=== PATIENT | male | born 1935 | race Caucasian/White ===

== ENCOUNTER 2021-05-09 14:36 | Emergency (ER) | payer MEDICARE, SELFPAY ==
[2021-05-09] VITALS (7 sets, daily range): BP systolic 135–169; BP diastolic 92–126; PULSE 65–79; RESP 15–33; TEMP 35.7–37; O2SAT 100; BMI 19.5
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
[2021-05-09 15:24] LABS: Absolute Lymphocyte Count 2.45 X10^3/uL (0.83-4.51); Absolute Neutrophil Count 5.8 X10^3/uL (2.0-7.7); Basophil# 0.06 X10^3/uL; Basophil% 0.7 % (0-1); Eosinophil# 0.13 X10^3/uL; Eosinophils% 1.4 % (0-5); Hematocrit 49.7 % (40-54); Hemoglobin 16.7 g/dL (13.0-16.5); Lymphocyte # 2.45 X10^3/ul (0.83-4.51); Lymphocyte % 26.8 % (19-41); Mean Corp Hgb Conc 33.6 g/dL (32-36); Mean Corpuscular Hgb 30.4 pg (27.0-32.0); Mean Corpuscular Volume 90.4 fL (80-94); Mean Platelet Vol. 11.6 fl (6.2-12.0); Monocyte# 0.72 X10^3/uL; Monocyte% 7.9 % (0-10); NRBC Flagged by Analyzer 0 % (0-5); Neutrophil # 5.76 X10^3/uL (2.7-7.7); Neutrophil % 62.9 % (47-70); Platelet Count 188 K/mm3 (150-450); RBC Distribution Width SD 49.6 fl (35.1-43.9); White Blood Count 9.2 K/mm3 (4.4-11.0)
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
[2021-05-09 15:37] LABS: Anion Gap 7 (5-15); BUN 36 mg/dL (7-18); BUN/Creat Ratio 26.7 RATIO (10-20); Calcium,Total 9.9 mg/dL (8.5-10.1); Chloride 104 mmol/L (98-107); Creatinine, Serum 1.35 mg/dL (0.70-1.30); EST Glomerular Filtration Rate 54 mL/min (>60); Est Glom Filt Rate - Afr Amer 65 mL/min (>60); Estimated Creatinine Clearance 36.36 ml/min; Glucose 148 mg/dL (74-106); Potassium 4.3 mmol/L (3.5-5.1); Sodium Level 140 mmol/L (136-145)
--- NOTE | 2021-05-09 16:24 | ED.RN ---
WALKED PT 200 FT, PT HAS AN UNSTEADY GAIT BUT TOLERATED WELL. DENIES USE OF ASSISTIVE DEVICES AT HOME ,
--- NOTE | 2021-05-09 16:30 | CM.ED ---
SW Note Referral Source: chemical analyst Reason: Discharge planning SW met with patient and his daughter, Nandini. Nandini said that she has to work and wanted to work bit and [employer]ank department supervisor taking care of patient but he has too many assets. Nandini said that she spoke to [facility] and she met with their client relations representative and had the POA and Living Will completed at the [facility]. Nandini said that patient will have an assessment with [facility] in June. Nandini indicated she was comfortable taking patient home. Patient said that he wanted to go home. SW asked daughter, Nandini, if she was going home with patient and Nandini said if you want me to and SW advised that we do want him to be with someone for his safety. SW provided resources on [employer] and [employer]. Nandini voiced no concerns with taking patient home and voiced that she was planning to take patient home, to his house. SW discussed that Home Health Care is limited as they come into the home a couple of days a week for limited time. Nandini tawanda that patint gets around good and does not need home health PT/OT. SW explained that resources for home help are private pay. Nandini said well, at least he doesn't have his car anymore. YASEMIN updated MD [place] Plan: Resource Provided including [employer] and [employer] Bernarda Verduzco
[2021-05-09 17:46] LABS: Bedside Glucose 96 mg/dL (74-106)
== END 2021-05-09 16:38 | disposition home or self-care (01) ==
PROVIDERS: Emergency Provider Emergency Medicine; PCP Internal Medicine; Visit Provider Emergency Medicine
DX: T68.XXXA Hypothermia, initial encounter (principal); V89.2XXA Person injured in unspecified motor-vehicle accident, traffic, initial encounter; Y93.9 Activity, unspecified; Y92.9 Unspecified place or not applicable
CPT/HCPCS: 71045; 80048; 82962; 85025; 93005; 99285; A4216

== ENCOUNTER 2021-08-10 12:44 | Observation (INO) | payer MEDICARE, SELFPAY ==
[2021-08-10 12:45] VITALS: BP 161/99; PULSE 78; RESP 16; TEMP 36.3; O2SAT 100; BMI 22.2
--- NOTE | 2021-08-10 13:09 | EKG12_ITS ---
Test Reason : Blood Pressure : / mmHG Vent. Rate : 075 BPM Atrial Rate : 075 BPM P-R Int : 196 ms QRS Dur : 136 ms QT Int : 414 ms P-R-T Axes : 032 007 152 degrees QTc Int : 462 ms Normal sinus rhythm Left bundle branch block Abnormal ECG Confirmed by DAIN NELSON, DEVAUGHN ([id number]), non linear editor NURIS CRENSHAW ([id number]) on 08/12/2021 8:22:18 AM Referred By: RADHA Confirmed By:DEVAUGHN GAUTAM MD
--- NOTE | 2021-08-10 13:09 | CT_ITS ---
STUDY: CT BRAIN WITHOUT CONTRAST REASON FOR EXAM: Male, 85 years old. ataxia, left side paresthesia RADIATION DOSAGE (If Supplied By Facility): CTDIvol = ( 44.99 ) mGy, DLP = ( 796.11 ) mGycm TECHNIQUE: Transaxial CT imaging of the brain was performed without administration of intravenous contrast material. Individualized dose optimization techniques were used for this CT. COMPARISON: No relevant priors. FINDINGS: Normal soft tissue structures. Normal calvarium. There is moderate cerebral atrophy with widening of the extra-axial spaces and ventricular dilatation. There are areas of decreased attenuation within the white matter tracts of the supratentorial brain, consistent with microvascular disease changes. 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 Normal brainstem. Normal cerebellum. There is no intracranial hemorrhage. There are no findings of an acute ischemic infarction. Normal visualized paranasal sinuses. CT/Brain/Head without Contrast IMPRESSION: Chronic involutional changes of the brain. Electronically Signed: Berhane Hamilton MD at 14:21 EDT ,
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
--- NOTE | 2021-08-10 13:28 | ED.RN ---
NIHSS CANCELED PER ED .
[2021-08-10 13:31] LABS: Bacteria 0 SEEN /hpf (None Seen); Mucous, Urine 0 SEEN /hpf (<or=2+); Red Blood Cells-Urine 0 SEEN /hpf (0-5); Squamous Epithelial Cells - UA 0 SEEN /hpf (0-5)
[2021-08-10 13:32] LABS: Absolute Lymphocyte Count 1.48 X10^3/uL (0.83-4.51); Basophil# 0.05 X10^3/uL; Basophil% 0.6 % (0-1); Eosinophil# 0.04 X10^3/uL; Eosinophils% 0.5 % (0-5); Hematocrit 43.1 % (40-54); Hemoglobin 14.9 g/dL (13.0-16.5); Lymphocyte # 1.48 X10^3/ul (0.83-4.51); Lymphocyte % 18.3 % (19-41); Mean Corp Hgb Conc 34.6 g/dL (32-36); Mean Corpuscular Hgb 29.8 pg (27.0-32.0); Mean Corpuscular Volume 86.2 fL (80-94); Mean Platelet Vol. 10.2 fl (6.2-12.0); Monocyte# 0.51 X10^3/uL; Monocyte% 6.3 % (0-10); NRBC Flagged by Analyzer 0 % (0-5); Neutrophil # 5.97 X10^3/uL (2.7-7.7); Neutrophil % 74.1 % (47-70); Platelet Count 253 K/mm3 (150-450); RBC Distribution Width CV 15.3 % (11.6-14.6); White Blood Count 8.1 K/mm3 (4.4-11.0)
[2021-08-10 13:33] LABS: Color, Urine Yellow (Yellow); Glucose, Dipstick Normal (Normal); Ketone-Dipstick Negative (Negative); Leukocyte Esterase-Dipstick Negative /ul (Negative); Nitrite-Dipstick Negative (Negative); Occult Blood-Urine Negative /ul (Negative); Protein-Dipstick 15 mg/dl (Negative); Urine Bilirubin Dipstick Negative (Negative); Urine Clarity Clear (Clear); Urine Urobilinogen Normal (Normal)
[2021-08-10 13:39] LABS: Hyaline Cast 0-5 SEEN /lpf (0-5); White Blood Cells 0-5 SEEN /hpf (0-5)
--- NOTE | 2021-08-10 13:40 | RAD_ITS ---
STUDY: X-RAY CHEST REASON FOR EXAM: Male, 85 years old. Neuro deficit, acute, stroke suspected TECHNIQUE: Single AP portable view of the chest. COMPARISON: 05/09/2021 FINDINGS: The lungs are clear and expanded. There is no demonstrated pleural abnormality. Normal size heart. Normal mediastinum and josue. Normal visualized pulmonary arteries. Normal visualized aortic arch and descending thoracic aorta. Normal visualized thoracic spine. Normal visualized ribs, clavicles, and shoulders. There is no demonstrated abnormality of the visualized soft tissue structures of the upper abdomen. RAD/Chest 1 View IMPRESSION: Normal x-ray examination of the chest. Electronically Signed: Berhane Hamilton MD at 14:18 EDT ,
[2021-08-10 13:52] LABS: Anion Gap 10 (5-15); BUN 65 mg/dL (7-18); BUN/Creat Ratio 24.2 RATIO (10-20); Calcium,Total 9.3 mg/dL (8.5-10.1); Chloride 118 mmol/L (98-107); Creatinine, Serum 2.69 mg/dL (0.70-1.30); EST Glomerular Filtration Rate 24 mL/min (>60); Est Glom Filt Rate - Afr Amer 29 mL/min (>60); Estimated Creatinine Clearance 20.69 ml/min; Glucose 166 mg/dL (74-106); Potassium 3.8 mmol/L (3.5-5.1); Sodium Level 143 mmol/L (136-145); Troponin-I HS 21 pg/mL (3.0-78.0)
[2021-08-10 13:58] LABS: International Normalized Ratio 1.1; Prothrombin Time (Protime)PT. 14.1 SECONDS (11.7-14.9)
[2021-08-10 13:59] LABS: Partial Thromboplast Time 27.8 Seconds (24.1-36.2)
[2021-08-10] MEDS: 0.9% Normal Saline 1,000 ML 150 ML IV (15:11)
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
[2021-08-10 16:13] VITALS: BP 130/78; PULSE 72; RESP 16; TEMP 36.6
[2021-08-10 16:29] VITALS: BMI 17.9
[2021-08-10 16:35] VITALS: BP 123/68; PULSE 70; RESP 18; TEMP 36.4; O2SAT 98
[2021-08-10 16:47] VITALS: BMI 17.9
[2021-08-10] MEDS: 0.9% Normal Saline 1,000 ML 100 ML IV ×2 (17:24→23:20)
[2021-08-10 18:38] VITALS: PULSE 86
[2021-08-10 19:03] VITALS: PULSE 80
[2021-08-10 20:23] VITALS: BP 151/84; PULSE 76; RESP 16; TEMP 36.5; O2SAT 99
[2021-08-10] MEDS: Pravastatin 20 MG Tablet 10 MG PO (22:29)
[2021-08-10] MEDS: Acetaminophen 325 MG Tablet 650 MG PO (23:18)
[2021-08-11] VITALS (7 sets, daily range): BP systolic 149–177; BP diastolic 82–95; PULSE 67–80; RESP 16–20; TEMP 36.1–36.8; O2SAT 97–100; BMI 17.9
[2021-08-11 05:31] LABS: Absolute Lymphocyte Count 2.25 X10^3/uL (0.83-4.51); Absolute Neutrophil Count 5.8 X10^3/uL (2.0-7.7); Basophil# 0.05 X10^3/uL; Basophil% 0.6 % (0-1); Eosinophils% 1.1 % (0-5); Hematocrit 37.1 % (40-54); Hemoglobin 13.2 g/dL (13.0-16.5); Lymphocyte # 2.25 X10^3/ul (0.83-4.51); Lymphocyte % 25.4 % (19-41); Mean Corp Hgb Conc 35.6 g/dL (32-36); Mean Corpuscular Hgb 30.3 pg (27.0-32.0); Mean Corpuscular Volume 85.3 fL (80-94); Mean Platelet Vol. 10.1 fl (6.2-12.0); Monocyte% 6.8 % (0-10); NRBC Flagged by Analyzer 0 % (0-5); Neutrophil # 5.82 X10^3/uL (2.7-7.7); Neutrophil % 65.8 % (47-70); Platelet Count 228 K/mm3 (150-450); RBC Distribution Width CV 15.3 % (11.6-14.6); RBC Distribution Width SD 47.2 fl (35.1-43.9); Red Blood Count 4.35 M/mm3 (4.6-6.2); White Blood Count 8.9 K/mm3 (4.4-11.0)
[2021-08-11 05:45] LABS: Anion Gap 8 (5-15); BUN 55 mg/dL (7-18); BUN/Creat Ratio 26.7 RATIO (10-20); Chloride 122 mmol/L (98-107); Creatinine, Serum 2.06 mg/dL (0.70-1.30); EST Glomerular Filtration Rate 33 mL/min (>60); Est Glom Filt Rate - Afr Amer 40 mL/min (>60); Estimated Creatinine Clearance 22.44 ml/min; Glucose 99 mg/dL (74-106); Potassium 3.5 mmol/L (3.5-5.1); Sodium Level 145 mmol/L (136-145)
[2021-08-11] MEDS: 0.9% Normal Saline 1,000 ML 100 ML IV (08:21)
[2021-08-11] MEDS: Aspirin 81 MG TAB.CHEW PO (09:35)
[2021-08-11] MEDS: Fluticasone 0.05% 1 SPRAY NASAL.SRY 2 SPRAY NASAL (09:35)
--- NOTE | 2021-08-11 12:04 | PN.HOSP_ITS ---
Subjective Subjective Much more alert today, he is oriented however he still shows signs of dementia Objective Data Objective Data Vital Signs: Vital Signs Temp Pulse Resp BP Pulse Ox 97.3 F L 77 18 150/84 H 97 08/11/21 08:15 08/11/21 10:52 08/11/21 08:15 08/11/21 08:15 08/11/21 08:15 Oxygen Delivery Method Room Air Weight: 130 lb 15.273 oz Body Mass Index (BMI) 17.9 Intake & Output: Intake and Output for Last 24 Hours 08/10/21 08/11/21 08/12/21 03:59 03:59 03:59 Intake Total 1673.33 / 1673.33 1141.67 / 1141.67 Output Total 50 / 50 Balance 1623.33 / 1623.33 1141.67 / 1141.67 Lab / Micro Data Result Diagrams: 08/11/21 05:04 08/11/21 05:04 Labs: Laboratory Results - last 24 hr 08/10/21 13:15: Urine Color Yellow, Urine Clarity Clear, Urine pH 5.0, Ur Specific [place] 1.020, Urine Protein 15 H, Urine Glucose (UA) Normal, Urine Ketones Negative, Urine Occult Blood Negative, Urine Nitrite Negative, Urine Bilirubin Negative, Urine Urobilinogen Normal, Ur Leukocyte Esterase Negative, Urine RBC 0 SEEN, Urine WBC 0-5 SEEN, Ur Squamous Epith Cells 0 SEEN, Urine Bacteria 0 SEEN, Hyaline Casts 0-5 SEEN, Urine Mucus 0 SEEN 08/10/21 13:21: WBC 8.1, RBC 5.00, Hgb 14.9, Hct 43.1, MCV 86.2, MCH 29.8, MCHC 34.6, RDW Std Deviation 48.0 H, RDW Coeff of Bj 15.3 H, Plt Count 253, MPV 10.2, Immature Gran % (Auto) 0.200, Neut % (Auto) 74.1 H, Lymph % (Auto) 18.3 L, [place] % (Auto) 6.3, Eos % (Auto) 0.5, Baso % (Auto) 0.6, Absolute Neuts (auto) 6.0, Absolute Lymphs (auto) 1.48, Nucleated RBC % 0 08/10/21 13:21: PT 14.1, INR 1.1, APTT 27.8 08/10/21 13:21: Sodium 143, Potassium 3.8, Chloride 118 H, Carbon Dioxide 15.0 L , Anion Gap 10, BUN 65 H, Creatinine 2.69 H, Estim Creat Clear Calc 20.69, Est GFR (MDRD) Af Amer 29 L, Est GFR (MDRD) Non-Af 24 L, BUN/Creatinine Ratio 24.2 H , Glucose 166 H, Calcium 9.3, Troponin I High Sens 21 08/11/21 05:04: WBC 8.9, RBC 4.35 L, Hgb 13.2, Hct 37.1 L, MCV 85.3, MCH 30.3, MCHC 35.6, RDW Std Deviation 47.2 H, RDW Coeff of Bj 15.3 H, Plt Count 228, MPV 10.1, Immature Gran % (Auto) 0.300, Neut % (Auto) 65.8, Lymph % (Auto) 25.4, [place] % (Auto) 6.8, Eos % (Auto) 1.1, Baso % (Auto) 0.6, Absolute Neuts (auto) 5.8, Absolute Lymphs (auto) 2.25, Nucleated RBC % 0 08/11/21 05:04: Sodium 145, Potassium 3.5, Chloride 122 H, Carbon Dioxide 15.0 L , Anion Gap 8, BUN 55 H, Creatinine 2.06 H, Estim Creat Clear Calc 22.44, Est GFR (MDRD) Af Amer 40 L, Est GFR (MDRD) Non-Af 33 L, BUN/Creatinine Ratio 26.7 H , Glucose 99, Calcium 9.0 Radiography Diagnostic Testing: Radiology Impression Brain CT 08/10/21 13:09 IMPRESSION: Chronic involutional changes of the brain. Electronically Signed: Berhane Hamilton MD at 14:21 EDT , Chest X-Ray 08/10/21 13:40 IMPRESSION: Normal x-ray examination of the chest. Electronically Signed: Berhane Hamilton MD at 14:18 EDT , Physical Exam Const alert, oriented x3 and no apparent distress General Appearance: cooperative HEENT normocephalic and moist oral mucous membranes Eyes PERRL, EOMs intact bilaterally and conjunctivae normal Neck supple and no JVD Resp normal respiratory effort, no retractions, no use of accessory muscles and clear to auscultation bilaterally Auscultation: Negative for crackles, rales, rhonchi or wheezes Cardio regular rate, regular rhythm, S1 normal heart sound, S2 normal heart sound and no murmurs GI soft to palpation, non-tender and non-distended; Negative for hepatosplenomegaly Extremity no clubbing, cyanosis or edema Skin no rashes or lesions noted Neuro no focal motor deficits and no sensory deficits noted Psych affect normal Appearance: appropriate Assessment & Plan Assessment/Plan (1) Acute renal failure: PLAN: Plan 1. Confusion possibly due to acute renal failure versus CVA ? Creatinine today is 2.06 and in April of this year was 1.35, with his improvement in renal function it does verify his acute renal failure diagnosis ? Continue with gentle IV fluid hydration ? Chest x-ray and UA were unremarkable for infection ? Brain CT was also unremarkable though there were signs of chronic ischemic changes as well signs of a previous stroke ? Continue with his statin and will add aspirin given his history of previous strokes, family does not want to pursue MRI or CTAs of the head and neck ? PT/OT evaluations for possible placement 2. HTN ? Blood pressures currently are stable ? However per report he does not take his blood pressure medications consistently ? We will hold his lisinopril secondary to his acute renal failure ? Despite the left bundle branch block on EKG read by the ED physician, family would not like to pursue any type of cardiac work-up at this time DVT: SCDs Charges/Coding Visit Charges Inpatient E&M: 44013 Subs Hosp L2
--- NOTE | 2021-08-11 12:10 | CASEMGMT ---
Addendum entered by Caro Garay 08/11/21 15:09: Call back from Sara at [facility] and she states they can accept pt with SOC 08/12/21. Sara aware to call daughter, Nandini, to set up SOC, voices understanding. Jose FERGUSON CM Original Note: MARTY MARTINEZ assessment: Face to Face with patient for initial transition planning/care coordination assessment. MARTY MARTINEZ introduced self and role at [facility], pt voices understanding and consents to assessment. Pt is sitting up in chair in no distress on room air. Pt is A/Ox4 and answers all questions appropriately.? Pt's daughter, Nandini, is at bedside during assessment. Care providers, pharmacy,?and demographics verified/updated. ? Presentation: worsening confusion over last few days, weakness Admitting dx: Confusion, KELLY PCP: Jerri Specialists: None Preferred Pharmacy: [facility] Insurance: [facility] Prescription Benefit:?[facility] Living Will/HPOA: Per daughter, pt has LW/HPOA and is aware they are not on file at [facility]. Pt's daughter, Nandini, is HPOA. LNOK: Nandini/Brandan [place], daughter/son-in-law Living Arrangements: Pt's daughter states that she and her are moving into pt's home, which is a 3 story home and pt states no concerns at home. Pt is independent with ADL's. Transportation: Pt's family drives and states no transportation concerns. DME/HHC: Pt has grab bars in shower and states no further DME. Pt/daughter decline need for any further DME. Pt/daughter are interested in HHC at discharge and list of HHC providers including quality and resource use data and consistent with the pt's preferred geographic region, medical needs, and insurance network. Daughter states she would like [facility] for PT/OT and referral to Eleni at [facility]. Pt/daughter states no concerns with going home at time of discharge. Pt is retired. Pt does not smoke cigarettes or drink ETOH. Pt/daughter voice no further concerns/needs. CM to follow for any further discharge planning/needs. Advised pt to ask for CM if any further questions/concerns/needs arise, voices understanding. Pt Goal: Home Plan: Home w/ HHC and family support Jose FERGUSON CM
--- NOTE | 2021-08-11 12:28 | DCINST_ITS ---
Discharge Instructions Diet Discharge Diet: Low fat / Low cholesterol Activity Discharge Activity: Return to Normal Activity and May Not Drive Dressing / Incision Call your doctor if you observe: Fever of 101 or Higher, Shortness of breath, Dizziness, Fainting spells, Swelling in the ankles, Chest pain and Increased palpitations (irregular heartbeat) Follow Up Care Test Results: Test results from this visit will be discussed in further detail at your follow- up appointment, if applicable. Discharge Plan Admission Admit Date/Time: 08/10/21 15:54 Attending Provider: Chema Glass Primary Care Provider: Bárbara Guthrie Discharge Orders/Prescriptions Prescriptions: New aspirin 81 mg Tablet,Chewable 81 mg PO BREAKFAST 30 Days Qty: 30 0RF Continued pravastatin 10 mg tablet 10 tab PO DAILY Label Comments: TAKE 1 TABLET BY MOUTH DAILY AT BEDTIME triamcinolone acetonide 55 mcg aerosol,spray 2 spray INTRANASAL DAILY Label Comments: USE 2 SPRAYS IN THE NOSE ONCE DAILY Held lisinopril 10 mg tablet 1 tab PO DAILY Hold Instructions: Resume on 08/13/21. Label Comments: TAKE 1 TABLET BY MOUTH DAILY Referrals / Follow Up: Bárbara Guthrie MD [Primary Care Provider] - Within 1 Week Disposition Disposition (needs filled in before D/C Order can be placed): Home Health Service
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
--- NOTE | 2021-08-11 13:48 | PHA.DC.MR ---
Pharmacy Service has performed discharge medication reconciliation for this patient. Home Medications lisinopril 10 mg tablet 1 tab PO DAILY blood pressure 08/10/21 pravastatin 10 mg tablet 10 tab PO DAILY cholesterol 08/10/21 triamcinolone acetonide 55 mcg nasal spray aerosol 2 spray intranasal DAILY breathing 08/10/21 aspirin 81 mg chewable tablet 81 mg PO BREAKFAST 30 days #30 tabs 08/11/21 The patient's discharge medication list was reviewed for discrepancies and discrepancies were resolved.
[2021-08-11] MEDS: Acetaminophen 325 MG Tablet 650 MG PO (14:35)
== END 2021-08-11 12:30 | disposition home health service (06) ==
LOC: ED 13:34 → PCU 19:08
PROVIDERS: Admitting Provider Family Medicine; Emergency Provider Emergency Medicine; PCP Internal Medicine; Visit Provider Family Medicine
DX: N17.9 Acute kidney failure, unspecified (principal); F03.90 Unspecified dementia, unspecified severity, without behavioral disturbance, psychotic disturbance, mood disturbance, and anxiety; E78.5 Hyperlipidemia, unspecified; I10 Essential (primary) hypertension; I44.7 Left bundle-branch block, unspecified; Z86.73 Personal history of transient ischemic attack (TIA), and cerebral infarction without residual deficits; R27.0 Ataxia, unspecified; R29.702 NIHSS score 2; Z79.899 Other long term (current) drug therapy
CPT/HCPCS: 36415; 70450; 71045; 80048; 81001; 84484; 85025; 85610; 85730; 92526; 93005; 96360; 96361; 97162; 97166; 97802; 99218; 99285; J7030; A4216; G0378

== ENCOUNTER 2021-08-23 07:26 | Emergency (ER) | payer MEDICARE, SELFPAY ==
[2021-08-23 07:27] VITALS: BP 183/88; PULSE 46; RESP 18; TEMP 36.4; O2SAT 100; BMI 20.1
--- NOTE | 2021-08-23 07:55 | EDS_ITS ---
HPI History of Present Illness Chief Complaint: Dental Informant: patient Narrative Narrative: Patient states tooth and right lower jaw has been bothering him off and on for a while. He evidently talked to a dentist sounds like sometime this past week and they stated he could drop him to be seen on Wednesday. But this morning he woke up and the tooth is just bothering him more. He has no neck pain. He does not feel ill. He has no chest pain trouble breathing. He isolates the pain directly to tooth #27. Nothing makes it better or worse but nothing is really been tried. [facility] Medical History Complete left bundle branch block HTN (hypertension) Hyperlipidemia Home Medications lisinopril 10 mg tablet 1 tab PO DAILY blood pressure 08/10/21 [History Last Taken Unknown] pravastatin 10 mg tablet 10 tab PO DAILY cholesterol 08/10/21 [History Last Taken Unknown] triamcinolone acetonide 55 mcg nasal spray aerosol 2 spray intranasal DAILY breathing 08/10/21 [History Last Taken Unknown] aspirin 81 mg chewable tablet 81 mg PO BREAKFAST 30 days #30 tabs 08/11/21 [Rx Last Taken Unknown] penicillin V potassium 250 mg tablet 500 mg PO 4X/DAY #40 tabs 08/23/21 [Rx Last Taken Unknown] tramadol 50 mg tablet 50 mg PO Q8H PRN pain #9 tabs 08/23/21 [Rx Last Taken Unknown] Allergy/AdvReac Type Severity Reaction Status Date / Time No Known Allergies Allergy Verified 08/23/21 07:32 Social History Smoking Status: Never smoker ROS ROS ED Constitutional Constitutional ED: Denies chills or fever(s) Eyes Eyes: Denies blurry vision ENT ENT ED: Reports other Details: Tooth pain but no trouble swallowing ; Denies sore throat Cardiovascular Cardiovascular: Denies chest pain, palpitations or racing heartbeat Respiratory/Chest Respiratory/Chest: Denies cough, dyspnea or dyspnea on exertion Gastrointestinal Gastrointestinal: Denies nausea or vomiting Musculoskeletal Musculoskeletal: Denies back pain or neck pain Integumentary Denies rash Neurologic Neurologic: Denies headache(s) Hematologic/Lymphatic Hematologic/Lymphatic: Denies lymphadenopathy Allergic/Immunologic Allergic/Immunologic ED: Denies urticaria EXAM Physical Exam Const Vital Signs: 08/23/21 07:27 Temperature 97.6 F L Temperature Source Temporal Pulse Rate 46 L Respiratory Rate 18 Blood Pressure 183/88 H Blood Pressure Mean 119 Pulse Ox 100 Oxygen Delivery Method Room Air Positive well nourished and well developed General Appearance ED: well developed and NAD HEENT HEENT Narrative: No external rash or swelling. No sinus tenderness. No nasal drainage. Voice is normal. Handle secretions normally. Tooth #27 is eroded down into the gums. The gum is somewhat erythematous. But there is no drainable abscess. Floor the mouth is soft. Tongue is nontender. No sign of Delroy's angina. Negative for trauma Eyes EOMs intact bilaterally Neck no lymphadenopathy, supple and no JVD General: Negative for anterior neck swelling Lymph Lymphatic: no lymphadenopathy noted Chest Wall inspection of chest normal Resp normal respiratory effort GI normal to inspection, nondistended, normoactive bowel sounds and non-tender Skin no rashes or lesions noted MDM MDM MDM Narrative Medical decision making narrative: Patient has isolated dental pain. I do not think this is a masquerade of heart disease. He will be treated with meds for pain and antibiotics. He states he can get into a dentist on Wednesday. We discussed reasons to return. Discharge Plan Triage Chief Complaint: Dental ED Provider: Jose Campos Dx/Rx/DC Orders Clinical Impression: Pain, dental Instructions: ED Dental Pain Prescriptions: New penicillin V potassium 250 mg tablet 500 mg PO 4X/DAY Qty: 40 0RF tramadol 50 mg tablet 50 mg PO Q8H PRN (Reason: pain) Qty: 9 0RF No Action pravastatin 10 mg tablet 10 tab PO DAILY Label Comments: TAKE 1 TABLET BY MOUTH DAILY AT BEDTIME lisinopril 10 mg tablet 1 tab PO DAILY Hold Instructions: Resume on 08/13/21. Label Comments: TAKE 1 TABLET BY MOUTH DAILY triamcinolone acetonide 55 mcg aerosol,spray 2 spray INTRANASAL DAILY Label Comments: USE 2 SPRAYS IN THE NOSE ONCE DAILY aspirin 81 mg Tablet,Chewable 81 mg PO BREAKFAST 30 Days Qty: 30 0RF Primary Care Provider: Bárbara Guthrie Referrals: Bárbara Guthrie MD [Primary Care Provider] - As soon as possible Activity Restrictions/Additional Instructions: See your dentist as soon as possible for recheck. Disposition Disposition: Home, Self Care
[2021-08-23] MEDS: Acetaminophen 325 MG Tablet 650 MG PO (08:12)
[2021-08-23] MEDS: Penicillin Vk 250 MG Tablet 500 MG PO (08:13)
== END 2021-08-23 08:24 | disposition home or self-care (01) ==
PROVIDERS: Emergency Provider Emergency Medicine; PCP Internal Medicine; Visit Provider Emergency Medicine
DX: K08.89 Other specified disorders of teeth and supporting structures (principal); I10 Essential (primary) hypertension; E78.5 Hyperlipidemia, unspecified; Z79.899 Other long term (current) drug therapy; Z79.82 Long term (current) use of aspirin
CPT/HCPCS: 99285

== ENCOUNTER 2022-07-05 11:18 | Emergency (ER) | payer MEDICARE, SELFPAY ==
[2022-07-05 11:19] VITALS: BP 155/87; PULSE 67; RESP 18; TEMP 36.2; O2SAT 100; BMI 21.2
--- NOTE | 2022-07-05 11:44 | RAD_ITS ---
INDICATION: cough EXAMINATION/TECHNIQUE: X-RAY - XR Chest 1 View COMPARISON: May 09 and August 10, 2021 FINDINGS: LINES/DEVICES: None. LUNGS: No new consolidation, edema or effusion. No pneumothorax. MEDIASTINUM AND CARDIOVASCULAR STRUCTURES: Cardiac silhouette not enlarged. Central airways and mediastinal contour are unremarkable. BONES AND SOFT TISSUES: Unremarkable. RAD/Chest 1 View (Portable) IMPRESSION: No radiographic evidence of acute cardiopulmonary disease. Electronically Signed: Elida Gonzalez MD at 13:06 EDT ,
--- NOTE | 2022-07-05 11:45 | EDS_ITS ---
HPI History of Present Illness Chief Complaint: Weakness Narrative Narrative: 86-year-old male presenting with his family because they are concerned of his weakness. He also states he has a heavy cough. When I asked the patient he states he feels good. He does not have any complaints. He does have any pain anywhere. He is not short of breath. Family states that last 2 days has been sleeping a little bit more and usually walks around the block in the morning but did not do that the last 2 days. PFSH PFS Medical History Complete left bundle branch block HTN (hypertension) Hyperlipidemia Home Medications lisinopril 10 mg tablet 1 tab PO DAILY blood pressure 08/10/21 [History Last Taken Unknown] pravastatin 10 mg tablet 10 tab PO DAILY cholesterol 08/10/21 [History Last Taken Unknown] aspirin 81 mg chewable tablet 81 mg PO BREAKFAST 30 days #30 tabs 08/11/21 [Rx Last Taken Unknown] Allergy/AdvReac Type Severity Reaction Status Date / Time No Known Allergies Allergy Verified 07/05/22 11:19 Social History Smoking Status: Never smoker ROS ROS ED Constitutional Constitutional ED: Denies chills, fever(s) or sweats Eyes Eyes: Denies blurry vision or change in vision ENT ENT ED: Denies ear pain or sore throat Cardiovascular Cardiovascular: Denies chest pain, palpitations or racing heartbeat Respiratory/Chest Respiratory/Chest: Denies cough, dyspnea or sputum Gastrointestinal Gastrointestinal: Denies abdominal pain, constipation, diarrhea, nausea or vomiting Genitourinary Genitourinary ED: Denies dysuria, hematuria or urinary frequency Musculoskeletal Musculoskeletal: Denies arthralgias, myalgias or neck pain Integumentary Denies abscess, Abrasions or rash Neurologic Neurologic: Denies headache(s), paresthesias or weakness Psychiatric Psychiatric: Denies anxiety, depression, suicidal ideation or suicidal thoughts Endocrine Endocrinology: Denies polydipsia or polyuria EXAM Physical Exam Const Vital Signs: 07/05/22 11:19 07/05/22 11:44 Temperature 97.1 F L Temperature Source Temporal Pulse Rate 67 Respiratory Rate 18 Respiratory Effort Normal Non-Labored Respiratory Pattern Normal Blood Pressure 155/87 H Blood Pressure Mean 109 Pulse Ox 100 Oxygen Delivery Method Room Air Positive well nourished General Appearance ED: NAD; Negative for pallor HEENT Reports moist mucous membranes Eyes PERRL and EOMs intact bilaterally General Eye ED: Negative for pale conjunctiva or scleral icterus Cardio regular rate and regular rhythm GI normal to inspection, nondistended, normoactive bowel sounds Neuro oriented x3 and CN's II-XII intact bilaterally Sensorium / Orientation: alert Psych mental status grossly normal Skin no rashes or lesions noted General Skin Exam: Negative for jaundice or pallor MDM MDM MDM Narrative Medical decision making narrative: Patient presenting with perceived generalized weakness by his family but states he feels great. He does not have any complaints but the family states he has had a cough. Patient's physical exam is normal. His vital signs are stable and he is afebrile. Differential at this point includes pneumonia, viral syndrome, dehydration. CBC to assess white blood cell count, hemoglobin, platelets, differential. Chest x-ray will be obtained to rule out pneumonia. COVID and influenza will be collected. CMP to assess liver function, renal function, electrolytes, glucose. Urinalysis was performed to rule out UTI given his perceived weakness. CBC shows no leukocytosis. Hemoglobin hematocrit are stable. Platelets are normal. Creatinine is up today to 2.59. Previously 2.06 however this was a year ago. Patient was given a liter of IV fluids. Urinalysis negative for infection. Chest x-ray on my interpretation shows no acute cardiopulmonary process. The radiologist interprets and agrees. COVID and influenza are negative discussed with on-call provider for Dr. Guthrie. Follow-up next week for repeat labs. Impression: 1. Dehydration 2. Weakness Lab Data Attestation: I reviewed the patient's lab results. Labs: Laboratory Results - last 24 hr 07/05/22 07/05/22 07/05/22 12:00 12:00 12:41 WBC 6.9 RBC 4.33 L Hgb 12.9 L Hct 41.3 MCV 95.4 H MCH 29.8 MCHC 31.2 L RDW Std Deviation 48.9 H RDW Coeff of Bj 13.8 Plt Count 176 MPV 11.8 Sodium 143 Potassium 4.6 Chloride 109 H Carbon Dioxide 28.0 Anion Gap 6 BUN 40 H Creatinine 2.59 H Estim Creat Clear Calc 20.73 Est GFR (MDRD) Af Amer 31 L Est GFR (MDRD) Non-Af 25 L BUN/Creatinine Ratio 15.4 Glucose 108 H Calcium 9.1 Total Bilirubin 0.30 AST 26 ALT 27 Alkaline Phosphatase 66 Total Protein 6.9 Albumin 3.2 Globulin 3.7 Albumin/Globulin Ratio 0.9 Urine Color Yellow Urine Clarity Clear Urine pH 6.0 Ur Specific [place] 1.010 Urine Protein 15 H Urine Glucose (UA) Normal Urine Ketones Negative Urine Occult Blood Negative Urine Nitrite Negative Urine Bilirubin Negative Urine Urobilinogen Normal Ur Leukocyte Esterase 100 H Urine RBC 0 SEEN Urine WBC 25-50 SEEN Ur Squamous Epith Cells 0 SEEN Urine Bacteria 0 SEEN Urine Mucus 0 SEEN Radiography Diagnostic Testing: Clinical Impression(s) from Imaging Studies Chest X-Ray 07/05/22 11:44 IMPRESSION: No radiographic evidence of acute cardiopulmonary disease. Electronically Signed: Elida Gonzalez MD at 13:06 EDT Reading Location ID and State: [facility] / [place] Tel , Service support , Discharge Plan Triage Chief Complaint: Weakness Other Complaint: Cough ED Provider: Awais Amezquita Dx/Rx/DC Orders Instructions: ED Dehydration (Adult), ED Weakness (Uncertain Cause) Prescriptions: No Action pravastatin 10 mg tablet 10 tab PO DAILY Label Comments: TAKE 1 TABLET BY MOUTH DAILY AT BEDTIME lisinopril 10 mg tablet 1 tab PO DAILY Hold Instructions: Resume on 08/13/21. Label Comments: TAKE 1 TABLET BY MOUTH DAILY aspirin 81 mg Tablet,Chewable 81 mg PO BREAKFAST 30 Days Qty: 30 0RF Primary Care Provider: Bárbara Guthrie Referrals: Bárbara Guthrie MD [Primary Care Provider] - Disposition Disposition: Home, Self Care
[2022-07-05 12:15] LABS: Hematocrit 41.3 % (40-54); Hemoglobin 12.9 g/dL (13.0-16.5); Mean Corp Hgb Conc 31.2 g/dL (32-36); Mean Corpuscular Hgb 29.8 pg (27.0-32.0); Mean Corpuscular Volume 95.4 fL (80-94); Mean Platelet Vol. 11.8 fl (6.2-12.0); Platelet Count 176 K/mm3 (150-450); RBC Distribution Width CV 13.8 % (11.6-14.6); RBC Distribution Width SD 48.9 fl (35.1-43.9); Red Blood Count 4.33 M/mm3 (4.6-6.2); White Blood Count 6.9 K/mm3 (4.4-11.0)
[2022-07-05 12:45] LABS: ALB/GLOB Ratio 0.9 RATIO (0.9-2.4); AST(SGOT) 26 U/L (15-37); Alanine Aminotransfer ALT/SGPT 27 U/L (16-61); Albumin, Serum 3.2 g/dL (3.2-5.0); Alkaline Phosphatase 66 U/L (45-117); Anion Gap 6 (5-15); BUN 40 mg/dL (7-18); BUN/Creat Ratio 15.4 RATIO (10-20); Calcium,Total 9.1 mg/dL (8.5-10.1); Chloride 109 mmol/L (98-107); Creatinine, Serum 2.59 mg/dL (0.70-1.30); EST Glomerular Filtration Rate 25 mL/min (>60); Est Glom Filt Rate - Afr Amer 31 mL/min (>60); Estimated Creatinine Clearance 20.73 ml/min; Globulin 3.7 g/dL (2.2-4.2); Glucose 108 mg/dL (74-106); Potassium 4.6 mmol/L (3.5-5.1); Protein, Total 6.9 g/dL (6.4-8.2); Sodium Level 143 mmol/L (136-145)
[2022-07-05 12:48] LABS: Bacteria 0 SEEN /hpf (None Seen); Mucous, Urine 0 SEEN /hpf (<or=2+); Red Blood Cells-Urine 0 SEEN /hpf (0-5); Squamous Epithelial Cells - UA 0 SEEN /hpf (0-5)
[2022-07-05 12:51] LABS: Color, Urine Yellow (Yellow); Glucose, Dipstick Normal (Normal); Ketone-Dipstick Negative (Negative); Leukocyte Esterase-Dipstick 100 /ul (Negative); Nitrite-Dipstick Negative (Negative); Occult Blood-Urine Negative /ul (Negative); Protein-Dipstick 15 mg/dl (Negative); Urine Bilirubin Dipstick Negative (Negative); Urine Clarity Clear (Clear); Urine Urobilinogen Normal (Normal)
[2022-07-05 13:04] LABS: White Blood Cells 25-50 SEEN /hpf (0-5)
[2022-07-05] MEDS: 0.9% Normal Saline 1,000 ML 999 ML IV (13:50)
== END 2022-07-05 15:22 | disposition home or self-care (01) ==
PROVIDERS: Emergency Provider Student in an Organized Health Care Education/Training Program; PCP Internal Medicine; Visit Provider Student in an Organized Health Care Education/Training Program
DX: E86.0 Dehydration (principal); I10 Essential (primary) hypertension; E78.5 Hyperlipidemia, unspecified; R53.1 Weakness; Z79.899 Other long term (current) drug therapy; Z79.82 Long term (current) use of aspirin
CPT/HCPCS: 71045; 80053; 81001; 85027; 87428; 96360; 99282; J7030; A4216

== ENCOUNTER 2022-11-19 11:54 | Emergency (ER) | payer MEDICARE, SELFPAY ==
[2022-11-19 11:56] VITALS: BP 137/83; PULSE 66; RESP 14; TEMP 36.7; O2SAT 97; BMI 20.5
--- NOTE | 2022-11-19 12:46 | EDS_ITS ---
HPI History of Present Illness Chief Complaint: Confusion [facility] Medical History Complete left bundle branch block HTN (hypertension) Hyperlipidemia Home Medications lisinopril 10 mg tablet 1 tab PO DAILY blood pressure 08/10/21 [History Last Taken Unknown] pravastatin 10 mg tablet 10 tab PO DAILY cholesterol 08/10/21 [History Last Taken Unknown] aspirin 81 mg chewable tablet 81 mg PO BREAKFAST 30 days #30 tabs 08/11/21 [Rx Last Taken Unknown] Allergy/AdvReac Type Severity Reaction Status Date / Time No Known Allergies Allergy Verified 11/19/22 11:55 Social History Smoking Status: Never smoker EXAM Physical Exam Const Vital Signs: 11/19/22 11:56 11/19/22 15:14 Temperature 98.1 F Temperature Source Temporal Pulse Rate 66 68 Respiratory Rate 14 17 Blood Pressure 137/83 H 134/77 H Blood Pressure Mean 101 96 Pulse Ox 97 97 Oxygen Delivery Method Room Air MDM MDM MDM Narrative Medical decision making narrative: HISTORY OF PRESENT ILLNESS: 87-year-old male here with concern for increased confusion that is worse since Wednesday. There is concern for possible UTI. There is report of the patient eating or drinking much. The patient states he feels fine. Per the daughter has been more confused over the last 4 days. Notes he is confused at baseline however has been a little bit worse and she is concerned about a UTI and thinks he is dehydrated. REVIEW OF SYSTEMS: Pertinent positives: Confusion, anorexia Pertinent negatives: Headache, chest pain, shortness of breath, focal weakness, syncope, abdominal pain, vomiting, bleeding diathesis, volume loss PHYSICAL EXAM: Nursing triage notes reviewed, Vital signs reviewed Constitutional: please see mdm HENT: MMM Eyes: Pupils equal round and reactive to light, Extraocular muscles intact Neck: No stridor, no JVD, full neck ROM Lungs: Clear to auscultation, No wheezing or rales. No increased work of breathing, no conversational dyspnea, no accessory muscle use, no nasal flaring. No respiratory distress noted Heart: Regular rate and rhythm, No murmurs, No rubs and No gallops, 2+ distal pulses (radial, femoral, posterior tibial) in all extremities Abdomen: Soft, there is no tenderness, rigidity, rebound or guarding, no obvious peritoneal signs, no palpable pulsatile abdominal masses, no auscultated abdominal bruit : No CVAT Extremities: No edema Neuro: No focal neurological deficits, cranial nerves II through XII intact, 5/5 strength in all extremities. Intact sensation to light touch in all extremities, 2+ reflexes bilateral patella tendons. Normal gait. No ataxia. Skin: No rash or lesions noted MEDICAL DECISION MAKING: Chief Complaint: Confusion External records reviewed: Prior ED visits reviewed: Seen in the ED in June 2022 for dehydration Factors affecting care: Dementia, hypertension, hyperlipidemia Social determinants of health: History of dementia, elderly, poor literacy History obtained from others: The patient's daughter Consults: none MDM Narrative: Patient was hemodynamically stable, afebrile, nontoxic-appearing, patient was alert and oriented x3 (person place and time) I considered the following differential diagnosis: ICH, pneumonia, arrhythmia, ACS, anemia, electrolyte disturbance, metabolic or infectious encephalopathy ALL IMAGES (IF OBTAINED) HAVE BEEN PERSONALLY REVIEWED AND INTERPRETED BY KEMI BUCKLEY. EKG with sinus bradycardia, left ax deviation, Lipase is wnl indicating no pancreatic inflammation. Troponin is negative, no evidence of myocardial ischemia BMP with baseline CKD, no significant electrolyte abnormalities LFTs show no evidence of hepatobiliary pathology. Urinalysis shows no evidence of urinary inflammation suggestive of UTI I have personally reviewed the patient's chest x-ray. Chest x-ray is unremarkable for pulmonary edema, pneumothorax, pneumonia or focal cardiopulmonary abnormality. CT head negative The amalgamation of the patient's labs images showed no evidence of acute life- threatening etiology to explain his confusion. He was alert and oriented x3. Had no complaints. Labs images were unremarkable. My suspicion is that the patients symptoms are likely secondary to advanced age and underlying dementia. No clear signs of intracranial normality, metabolic or hepatic encephalopathy, infectious cephalopathy, ACS arrhythmia anemia or other concerning abnormality. The patient is appropriate for discharge home. No indication for further hospitalization or ED treatment at this time. The patient and/or family, caregivers express understanding. The patient and/or family, caregivers agrees with the plan. Shared decision making: I will have a discussion with the patient and or visitors regarding risk/benefits of further testing or admission. They will be made aware of of the risk/benefits inherent in this decision they will be given the opportunity to voice understanding. Total critical care time today provided was at least 0 minutes. This excludes separately billable procedures. Critical care time (if documented) is secondary to the patient having high probability of clinically significant/life threatening deterioration in the patient's condition which required my urgent intervention. Impression: 1. Confusion 2. Hx of dementia 3. CKD Dispo: discharge Lab Data Labs: Laboratory Results - last 24 hr 11/19/22 11/19/22 12:32 13:00 Sodium 138 Potassium 4.6 Chloride 107 Carbon Dioxide 27.0 Anion Gap 4 L BUN 30 H Creatinine 2.24 H Estim Creat Clear Calc 22.78 Est GFR (MDRD) Af Amer 36 L Est GFR (MDRD) Non-Af 30 L BUN/Creatinine Ratio 13.4 Glucose 83 Calcium 9.3 Total Bilirubin 0.60 Direct Bilirubin 0.12 AST 31 ALT 37 Alkaline Phosphatase 73 Troponin I High Sens 13 Total Protein 7.7 Albumin 3.7 Globulin 4.0 Albumin/Globulin Ratio 0.9 Lipase 66 Urine Color Yellow Urine Clarity Clear Urine pH 5.0 Ur Specific [place] 1.020 Urine Protein 15 H Urine Glucose (UA) Normal Urine Ketones 5 H Urine Occult Blood 10 H Urine Nitrite Negative Urine Bilirubin 1 H Urine Urobilinogen 1 H Ur Leukocyte Esterase 25 H Urine RBC 0 SEEN Urine WBC 0-5 SEEN Ur Squamous Epith Cells 0 SEEN Urine Bacteria 0 SEEN Hyaline Casts 0-5 SEEN Urine Mucus 0 SEEN Radiography Diagnostic Testing: Clinical Impression(s) from Imaging Studies Brain CT 11/19/22 13:18 IMPRESSION: Chronic involutional changes of the brain. Electronically Signed: Frank Corona MD at 14:31 EDT , Chest X-Ray 11/19/22 13:25 IMPRESSION: No acute abnormality is seen. Electronically Signed: Frank Corona MD at 13:46 EDT , Discharge Plan Triage Chief Complaint: Confusion ED Provider: Raúl Locke Dx/Rx/DC Orders Instructions: ED ALOC Prescriptions: No Action pravastatin 10 mg tablet 10 tab PO DAILY Patient Comments: TAKE 1 TABLET BY MOUTH DAILY AT BEDTIME lisinopril 10 mg tablet 1 tab PO DAILY Hold Instructions: Resume on 08/13/21. Patient Comments: TAKE 1 TABLET BY MOUTH DAILY aspirin 81 mg Tablet,Chewable 81 mg PO BREAKFAST 30 Days Qty: 30 0RF Primary Care Provider: Bárbara Guthrie Referrals: Kevan Nelson MD [Med Staff - Active Staff] - Bárbara Guthrie MD [Primary Care Provider] - Activity Restrictions/Additional Instructions: Thank you for trusting us with your care today! Please take Tylenol (2 pills, 650 mg), ibuprofen (2 pills, 400 mg) every 6 hours as needed for pain and fever control. Please return to the emergency department if your symptoms change or worsen. The patient's urinalysis did not show evidence of UTI however there was occult blood in his urine. This will require follow-up with urology determine source of occult bleeding in his urine. Differentials include irritation versus cancer. Please follow-up at the next well appointment the urologist has been provided for outpatient evaluation. Please follow with your primary care physician for further outpatient evaluation and management. Disposition Disposition: Home, Self Care Discharge Date/Time: 11/19/22 15:15
--- NOTE | 2022-11-19 13:18 | EKG12_ITS ---
Test Reason : CONFUSED Blood Pressure : / mmHG Vent. Rate : 059 BPM Atrial Rate : 059 BPM P-R Int : 206 ms QRS Dur : 118 ms QT Int : 458 ms P-R-T Axes : 018 -12 108 degrees QTc Int : 453 ms Sinus bradycardia Left ventricular hypertrophy with QRS widening and repolarization abnormality ( R in aVL ) Abnormal ECG Confirmed by NIRMAL NELSON, CALI ([id number]), advertising editor SORIN HARTMANN ([id number]) on 11/24/2022 12:37:28 PM Referred By: Confirmed By:CALI KINNEY MD
--- NOTE | 2022-11-19 13:18 | CT_ITS ---
STUDY: CT BRAIN WITHOUT CONTRAST REASON FOR EXAM: Male, 87 years old. Dementia. Increased confusion. RADIATION DOSAGE (If Supplied By Facility): CTDIvol = ( 44.99 ) mGy, DLP = ( 796.11 ) mGycm TECHNIQUE: Transaxial CT imaging of the brain was performed without administration of intravenous contrast material. Individualized dose optimization techniques were used for this CT. COMPARISON: Comparison is made with prior study dated August 10, 2021. FINDINGS: Normal soft tissue structures. Normal calvarium. There is moderate cerebral atrophy with widening of the extra-axial spaces and ventricular dilatation. There are areas of decreased attenuation within the white matter tracts of the supratentorial brain, consistent with microvascular disease changes. Normal basal ganglia and thalami. Normal brainstem. There is mild cerebellar atrophy. There is no intracranial hemorrhage. There are no findings of an acute ischemic infarction. Atherosclerotic calcification of the cavernous portions of the internal carotid arteries bilaterally. Normal visualized paranasal sinuses. CT/Brain/Head without Contrast IMPRESSION: Chronic involutional changes of the brain. Electronically Signed: Frank Corona MD at 14:31 EDT ,
--- NOTE | 2022-11-19 13:25 | RAD_ITS ---
STUDY: X-RAY CHEST REASON FOR EXAM: Male, 87 years old. Confusion TECHNIQUE: Single AP portable view of the chest. COMPARISON: Comparison is made with prior study of July 05, 2022. FINDINGS: The lungs are clear and expanded. There is no demonstrated pleural abnormality. Normal size heart. Calcified right azygous lymph node. Normal visualized pulmonary arteries. There is atherosclerotic tortuosity of the aortic arch and descending thoracic aorta. There are diffuse degenerative changes of the visualized thoracic spine. Normal visualized ribs, clavicles, and shoulders. There is no demonstrated abnormality of the visualized soft tissue structures of the upper abdomen. RAD/Chest 1 View (Portable) IMPRESSION: No acute abnormality is seen. Electronically Signed: Frank Corona MD at 13:46 EDT ,
[2022-11-19] MEDS: 0.9% Normal Saline (500mL Bag) 500 ML 1000 ML IV (13:30)
[2022-11-19 13:40] LABS: Bacteria 0 SEEN /hpf (None Seen); Mucous, Urine 0 SEEN /hpf (<or=2+); Red Blood Cells-Urine 0 SEEN /hpf (0-5); Squamous Epithelial Cells - UA 0 SEEN /hpf (0-5)
[2022-11-19 13:46] LABS: Color, Urine Yellow (Yellow); Glucose, Dipstick Normal (Normal); Ketone-Dipstick 5 mg/dl (Negative); Leukocyte Esterase-Dipstick 25 /ul (Negative); Nitrite-Dipstick Negative (Negative); Occult Blood-Urine 10 /ul (Negative); Protein-Dipstick 15 mg/dl (Negative); Urine Bilirubin Dipstick 1 mg/dL (Negative); Urine Clarity Clear (Clear); Urine Urobilinogen 1 mg/dl (Normal)
[2022-11-19 13:49] LABS: ALB/GLOB Ratio 0.9 RATIO (0.9-2.4); AST(SGOT) 31 U/L (15-37); Alanine Aminotransfer ALT/SGPT 37 U/L (16-61); Albumin, Serum 3.7 g/dL (3.2-5.0); Alkaline Phosphatase 73 U/L (45-117); Anion Gap 4 (5-15); BUN 30 mg/dL (7-18); BUN/Creat Ratio 13.4 RATIO (10-20); Bilirubin, Direct 0.12 mg/dL (0.00-0.30); Calcium,Total 9.3 mg/dL (8.5-10.1); Chloride 107 mmol/L (98-107); Creatinine, Serum 2.24 mg/dL (0.70-1.30); EST Glomerular Filtration Rate 30 mL/min (>60); Est Glom Filt Rate - Afr Amer 36 mL/min (>60); Estimated Creatinine Clearance 22.78 ml/min; Glucose 83 mg/dL (74-106); Lipase 66 U/L (13-75); Potassium 4.6 mmol/L (3.5-5.1); Protein, Total 7.7 g/dL (6.4-8.2); Sodium Level 138 mmol/L (136-145); Troponin-I HS 13 pg/mL (3.0-78.0)
[2022-11-19 13:53] LABS: Hyaline Cast 0-5 SEEN /lpf (0-5); White Blood Cells 0-5 SEEN /hpf (0-5)
[2022-11-19 15:14] VITALS: BP 134/77; PULSE 68; RESP 17; O2SAT 97
--- NOTE | 2022-11-19 15:18 | CASEMGMT ---
Social Work SW introduced self and role to patient and daughter. Pt's daughter is seeking SNF placement and pt is on a waitlist but interested in other resources. SW reviewed resources for adult daycare, direction home and a place for mom. Pt's daughter reports patient refuses to go to daycare and she is familiar with the other resources. Pt's daughter declined resources but appreciated the support. Teri Alonso STAFF THERAPIST, ASSEMBLER [employer]
== END 2022-11-19 15:15 | disposition home or self-care (01) ==
PROVIDERS: Emergency Provider Emergency Medicine; PCP Internal Medicine; Visit Provider Emergency Medicine
DX: R41.0 Disorientation, unspecified (principal); F03.90 Unspecified dementia, unspecified severity, without behavioral disturbance, psychotic disturbance, mood disturbance, and anxiety; I12.9 Hypertensive chronic kidney disease with stage 1 through stage 4 chronic kidney disease, or unspecified chronic kidney disease; E78.5 Hyperlipidemia, unspecified; N18.9 Chronic kidney disease, unspecified; Z79.899 Other long term (current) drug therapy; Z79.82 Long term (current) use of aspirin
CPT/HCPCS: 70450; 71045; 80048; 80053; 80076; 81001; 83690; 84484; 87428; 93005; 96360; 99284; J7040; A4216